=== PATIENT | female | born 1955 | race Hispanic/Latino ===

== ENCOUNTER → 2018-01-17 | Outpatient (CLI) | payer BC ==
[~2018-01-17] MED LIST: ALPR0.5T8 PO; ESTR0.5T PO; MELA3TAB PO; PRAS1TAB4 PO; PROG200C7 PO; ZOLP10TA2 PO
== END | disposition home or self-care (01) ==
LOC: RAH 10:24
PROVIDERS: ATTEND Obstetrics & Gynecology
DX: Z12.31 Encounter for screening mammogram for malignant neoplasm of breast (principal)
CPT/HCPCS: 77067

== ENCOUNTER → 2021-05-15 | Outpatient (CLI) | payer OTHER, MEDICARE ==
[~2021-05-15] MED LIST changes: -MELA3TAB PO; +MELA3TAB41 PO; +PROG200C11 PO; -PROG200C7 PO
== END | disposition home or self-care (01) ==
LOC: RAH 13:21
PROVIDERS: ATTEND Family Medicine
DX: Z12.31 Encounter for screening mammogram for malignant neoplasm of breast (principal)
CPT/HCPCS: 77067

== ENCOUNTER → 2022-06-07 | Outpatient (CLI) | payer OTHER, MEDICARE | END | disposition home or self-care (01) | LOC: RAH 14:54 | PROVIDERS: ATTEND Family Medicine | DX: Z12.31 Encounter for screening mammogram for malignant neoplasm of breast (principal) | CPT/HCPCS: 77067 ==

== ENCOUNTER → 2023-06-10 | Outpatient (CLI) | payer OTHER, MEDICARE ==
[~2023-06-10] MED LIST changes: -ESTR0.5T PO; +ESTR0.5T2 PO
== END | disposition home or self-care (01) ==
LOC: RAH 15:06
PROVIDERS: ATTEND Family Medicine
DX: Z12.31 Encounter for screening mammogram for malignant neoplasm of breast (principal)
CPT/HCPCS: 77067